=== PATIENT | female | born 1980 | race American Indian/Alaskan Native ===

== ENCOUNTER 2020-07-23 10:33 | Emergency (ER) | payer SELFPAY ==
--- NOTE | 2020-07-23 11:24 | RAD REPORT ---
EXAM DESCRIPTION: CT - Head Brain Wo Cont - 07/23/2020 11:19 am CLINICAL HISTORY: HEADACHE COMPARISON: No comparisons TECHNIQUE: Axial 5 mm thick images of the head were obtained without IV contrast. All CT scans are performed using dose optimization technique as appropriate and may include automated exposure control or mA/KV adjustment according to patient size. FINDINGS: No intracranial hemorrhage, mass, edema or shift of mid-line structures. No acute infarcti on changes seen. No abnormal extra-axial fluid collections. Ventricles are normal. Mastoid air cells and visualized portions of the paranasal sinuses are clear. No acute bony findings. IMPRESSION: Negative non-contrast CT head examination.
[2020-07-23] MEDS ORDERED: cloNIDine HCL 0.1 MG TAB ONE (11:32)
[2020-07-23 11:33] LABS: Absolute Lymphocytes (CBC) 1.3 K/uL (0.7-4.9); Basophils % 2.3 % (0-1.3); Hematocrit 37.5 % (36.0-45.0); Lymphocytes % 25.8 % (15.3-44.8); MPV 8.2 fL (7.6-11.3); RBC Red Blood Cell Count 4.17 M/uL (3.86-4.86)
[2020-07-23 11:41] LABS: Urine Bacteria <20 /HPF (<20); Urine Culture Reflex Order NOT NEEDED
[2020-07-23 11:43] LABS: Urine Blood 3+ (NEG); Urine Glucose NEGATIVE (NEG); Urine Protein 1+ (NEG)
[2020-07-23 11:45] LABS: BUN Blood Urea Nitrogen 22 mg/dL (7-18); Bicarbonate 30 mmol/L (21-32); Glucose Level 83 mg/dL (74-106); Potassium 3.9 mmol/L (3.5-5.1); Sodium Level 141 mmol/L (136-145); Troponin (Emerg Dept Use Only) < 0.02 ng/mL (0.0-0.045)
--- NOTE | 2020-07-23 12:06 | ER ---
Nurse's Notes [facility] Name: Santiago Thompson Age: 39 yrs Sex: Female : 1980 Arrival Date: 07/23/2020 Time: 10:39 Bed 19 Private MD: Diagnosis: Hypertension Presentation: 07/23 10:51 Chief complaint: Home BP 164/80. Denies pain/SOB. Coronavirus screen: At this time, the hb client does not indicate any symptoms associated with coronavirus-19. Ebola Screen: No symptoms or risks identified at this time. Initial Sepsis Screen: Does the patient meet any 2 criteria? No. Patient's initial sepsis screen is negative. Does the patient have a suspected source of infection? No. Patient's initial sepsis screen is negative. Risk Assessment: Do you want to hurt yourself or someone else? Patient reports no desire to harm self or others. Onset of symptoms was July 23, 2020. 10:51 Method Of Arrival: Wheelchair hb 10:51 Acuity: SILVIA 3 hb Triage Assessment: 12:37 General: Appears in no apparent distress. Behavior is calm, cooperative, appropriate ll2 for age. Pain: Denies pain. 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 - Social history:: Smoking status: Patient denies any tobacco usage or history of. - Family history:: not pertinent. - Hospitalizations: : No recent hospitalization is reported. Screenin:21 Abuse screen: Denies threats or abuse. Nutritional screening: No deficits noted. em Tuberculosis screening: No symptoms or risk factors identified. Fall Risk None identified. Vital Signs: 10:51 BP 173 / 108; Pulse 71; Resp 16; Temp 99; Pulse Ox 100% on R/A; Weight 68.04 kg; Height hb 4 ft. 11 in. (149.86 cm); Pain 0/10; 11:30 BP 164 / 100; Pulse 74; Resp 18; Pulse Ox 99% on R/A; em 12:39 BP 140 / 93; Pulse 54; Resp 15; Pulse Ox 100% on R/A; ll2 10:51 Body Mass Index 30.30 (68.04 kg, 149.86 cm) hb ED Course: 10:39 Patient arrived in ED. ds1 10:52 Triage completed. hb 10:52 Arm band placed on. hb 10:53 Jordan Alejo, RN is Primary Nurse. em 10:55 Sam Penn MD is Attending Physician. rn 11:18 CT Head Brain wo Cont In Process Unspecified. EDMS 11:21 Patient has correct armband on for positive identification. Placed in gown. Bed in low em position. Call light in reach. monitor and storage bin tender on. Pulse ox on. NIBP on. 11:21 Initial lab(s) drawn, by me, sent to lab. Inserted saline lock: 20 gauge in right em antecubital area, using aseptic technique. Blood collected. 12:38 No provider procedures requiring assistance completed. IV discontinued, intact, ll2 bleeding controlled, No redness/swelling at site. Pressure dressing applied. Administered Medications: 11:33 Drug: cloNIDine 0.1 mg Route: PO; em 12:40 Follow up: Response: No adverse reaction ll2 Outcome: 12:05 Discharge ordered by . rn 12:38 Discharged to home ambulatory. ll2 12:38 Condition: stable 12:38 Discharge instructions given to patient. 12:39 Patient left the ED. ll2 Signatures: Dispatcher [employer] Jordan Schofield, RN NNEKA Tracey Rodriguez ds1 Sam Penn MD MD rn Baxter, Heather, RN RN Mamie Lee RN RN ll2
--- NOTE | 2020-07-23 12:06 | EDPHYS ---
Physician Documentation [facility] Name: Santiago Zamorate Age: 39 yrs Sex: Female : 1980 Arrival Date: 07/23/2020 Time: 10:39 Bed 19 Private MD: ED Physician Sam Penn HPI: 07/23 11:39 This 39 yrs old Other Female presents to ER via Wheelchair with complaints of High rn Blood Pressure. 11:39 The patient has elevated blood pressure and discovered this at home. Onset: The rn symptoms/episode began/occurred 2 day(s) ago. Severity of symptoms: At its worst the blood pressure was moderate, in the emergency department the blood pressure is unchanged. The patient has not experienced similar symptoms in the past. Reports high blood pressure, noticed it 2 days ago at home, + mild headache, no focal neuro complaints, no vomiting/vision changes/abd pain. Seen by EMS, told to take advil, didn't improve BP, told to come to ER for evaluation. NO current headache. . 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 - Social history:: Smoking status: Patient denies any tobacco usage or history of. - Family history:: not pertinent. - Hospitalizations: : No recent hospitalization is reported. ROS: 11:39 Constitutional: Negative for fever, chills, and weight loss, Eyes: Negative for injury, rn pain, redness, and discharge, Cardiovascular: Negative for chest pain, palpitations, and edema, Respiratory: Negative for shortness of breath, cough, wheezing, and pleuritic chest pain, Abdomen/GI: Negative for abdominal pain, nausea, vomiting, diarrhea, and constipation, MS/Extremity: Negative for injury and deformity, Skin: Negative for injury, rash, and discoloration, Neuro: Negative for weakness, numbness, tingling, and seizure. Exam: 11:39 Constitutional: This is a well developed, well nourished patient who is awake, alert, rn and in no acute distress. Head/Face: Normocephalic, atraumatic. Eyes: Pupils equal round and reactive to light, extra-ocular motions intact. Lids and lashes normal. Conjunctiva and sclera are non-icteric and not injected. Cornea within normal limits. Periorbital areas with no swelling, redness, or edema. Cardiovascular: Regular rate and rhythm. No pulse deficits. Respiratory: Speaking full sentences. No increased work of breathing, no retractions or nasal flaring. Abdomen/GI: soft, non-tender Skin: Warm, dry with normal turgor. Normal color with no rashes, no lesions, and no evidence of cellulitis. MS/ Extremity: Pulses equal, no cyanosis. Neurovascular intact. Full, normal range of motion. Equal circumference. Neuro: Awake and alert, GCS 15, oriented to person, place, time, and situation. Cranial nerves II-XII grossly intact. Motor strength 5/5 in all extremities. Sensory grossly intact. Cerebellar exam normal Vital Signs: 10:51 BP 173 / 108; Pulse 71; Resp 16; Temp 99; Pulse Ox 100% on R/A; Weight 68.04 kg; Height hb 4 ft. 11 in. (149.86 cm); Pain 0/10; 11:30 BP 164 / 100; Pulse 74; Resp 18; Pulse Ox 99% on R/A; em 12:39 BP 140 / 93; Pulse 54; Resp 15; Pulse Ox 100% on R/A; ll2 10:51 Body Mass Index 30.30 (68.04 kg, 149.86 cm) hb MDM: 10:56 Patient medically screened. rn 12:03 Differential diagnosis: Malignant HTN. 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 Counseling: I had a detailed discussion with the patient and/or guardian regarding: the historical points, exam findings, and any diagnostic results supporting the discharge/admit diagnosis, lab results, radiology results, the need for outpatient follow up, to return to the emergency department if symptoms worsen or persist or if there are any questions or concerns that arise at home. Response to treatment: the patient's symptoms have markedly improved after treatment, and as a result, I will discharge patient. Special discussion: I discussed with the patient/guardian in detail that at this point there is no indication for admission to the hospital. It is understood, however, that if the symptoms persist or worsen the patient needs to return immediately for re-evaluation. ED course: BP improved, now 143/89, normal ct head, neg trop and normal creatinine. . 12:03 ED course: Will start on HCTZ given high blood pressure and family hx of early stroke, rn will f/u with PCP because will likely require second anti-hypertensive, this was discussed with patient and significant other. . 07/23 11:04 Order name: CBC with Diff; Complete Time: 11:39 rn 07/23 11:04 Order name: Basic Metabolic Panel; Complete Time: 12:02 rn 07/23 11:04 Order name: Troponin (emerg Dept Use Only); Complete Time: 12:02 rn 07/23 11:04 Order name: CT Head Brain wo Cont; Complete Time: 11:39 rn 07/23 11:04 Order name: Urine Microscopic Only; Complete Time: 12:02 rn 07/23 11:29 Order name: Urine Dipstick--Ancillary (enter results); Complete Time: 12:02 bd 07/23 11:04 Order name: IV Start; Complete Time: 11:21 rn 07/23 11:04 Order name: EKG; Complete Time: 11:05 rn 07/23 11:04 Order name: EKG - Nurse/Tech; Complete Time: 11:09 rn 07/23 11:04 Order name: Urine Test (obtain specimen); Complete Time: 11:35 rn 07/23 11:04 Order name: Urine Dipstick-Ancillary (obtain specimen); Complete Time: 11:35 rn Administered Medications: 11:33 Drug: cloNIDine 0.1 mg Route: PO; em 12:40 Follow up: Response: No adverse reaction ll2 Disposition: 07/23/20 12:05 Discharged to Home. Impression: Hypertension. - Condition is Stable. - Discharge Instructions: Hypertension. - Prescriptions for Hydrochlorothiazide 50 mg Oral Tablet - take 1 tablet by ORAL route once daily; 30 tablet. - Medication Reconciliation Form, Thank You Letter, Antibiotic Education, Prescription Opioid Use form. - Follow up: Private Physician; When: 10 - 14 days; Reason: Recheck today's complaints, Re-evaluation by your physician. - Problem is new. - Symptoms have improved. Signatures: Dispatcher [employer] Jordan Schofield, RN RN Sam Pal MD MD rn Baxter, Heather, RN RN Mamie Lee RN RN ll2 Corrections: (The following items were deleted from the chart) 12:39 12:05 07/23/2020 12:05 Discharged to Home. Impression: Hypertension. Condition is ll2 Stable. Forms are Medication Reconciliation Form, Thank You Letter, Antibiotic Education, Prescription Opioid Use. Follow up: Private Physician; When: 10 - 14 days; Reason: Recheck today's complaints, Re-evaluation by your physician. Problem is new. Symptoms have improved. rn
--- NOTE | 2020-07-23 12:15 | EKG ---
Test Date: 2020-07-23 Test Time: 11:05:56 Animal Control Licensing Worker: IRINA MEASUREMENT RESULTS: Intervals: Rate: 63 WA: 124 QRSD: 76 QT: 398 QTc: 407 [place]: P: 47 WA: 124 QRS: 51 T: 28 INTERPRETIVE STATEMENTS: Normal sinus rhythm Cannot rule out Anterior infarct, age undetermined Abnormal ECG No previous ECG available for comparison Electronically Signed On 07-23-20 12:14:54 CDT by Mina Mccarthy
[2020-07-23 12:47] VITALS: TEMP 99
[2020-07-23 12:58] VITALS: BP 164/100; O2SAT 99
== END 2020-07-23 12:39 | disposition home or self-care (01) ==
LOC: ER 10:33
DX: I10 Essential (primary) hypertension (principal)
CPT/HCPCS: 36415; 70450; 80048; 81003; 81015; 84484; 85025; 93005; 99284

== ENCOUNTER 2021-06-28 09:20 | Emergency (ER) | payer SELFPAY ==
--- NOTE | 2021-06-28 10:03 | EDPHYS ---
Physician Documentation [facility] Matthew Name: Santiago Thompson Age: 40 yrs Sex: Female : 1980 Arrival Date: 06/28/2021 Time: 09:24 Bed 19 Private MD: NAMAN Physician Kyle Lopez HPI: 06/28 09:58 This 40 yrs old Other Female presents to ER via Ambulatory with complaints of Mouth doris Problem. 09:58 The patient presents with broken tooth/teeth, pain. The problem is located in the lower doris left first molar. Onset: The symptoms/episode began/occurred 2 day(s) ago. Duration: The symptoms are continuous, and are unchanged since they started. Modifying factors: The symptoms are alleviated by nothing, the symptoms are aggravated by chewing, food, talking. Associated signs and symptoms: The patient has no apparent associated signs or symptoms. Severity of symptoms: At their worst the symptoms were mild, moderate, in the emergency department the symptoms are unchanged. The patient has not experienced similar symptoms in the past. 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 - Social history:: Smoking status: Patient denies any tobacco usage or history of. - Family history:: not pertinent. ROS: 09:58 Constitutional: Negative for fever, chills, and weight loss, Eyes: Negative for injury, doris pain, redness, and discharge, Neck: Negative for injury, pain, and swelling, Cardiovascular: Negative for chest pain, palpitations, and edema, Respiratory: Negative for shortness of breath, cough, wheezing, and pleuritic chest pain, Abdomen/GI: Negative for abdominal pain, nausea, vomiting, diarrhea, and constipation, Back: Negative for injury and pain, : Negative for injury, bleeding, discharge, and swelling, MS/Extremity: Negative for injury and deformity, Skin: Negative for injury, rash, and discoloration, Neuro: Negative for headache, weakness, numbness, tingling, and seizure, Psych: Negative for depression, anxiety, suicide ideation, homicidal ideation, and hallucinations, Allergy/Immunology: Negative for hives, rash, and allergies, Endocrine: Negative for neck swelling, polydipsia, polyuria, polyphagia, and marked weight changes, Hematologic/Lymphatic: Negative for swollen nodes, abnormal bleeding, and unusual bruising. 09:58 ENT: Positive for Gum pain Exam: 09:58 Constitutional: This is a well developed, well nourished patient who is awake, alert, doris and in no acute distress. Head/Face: Normocephalic, atraumatic. Eyes: Pupils equal round and reactive to light, extra-ocular motions intact. Lids and lashes normal. Conjunctiva and sclera are non-icteric and not injected. Cornea within normal limits. Periorbital areas with no swelling, redness, or edema. Neck: Trachea midline, no thyromegaly or masses palpated, and no cervical lymphadenopathy. Supple, full range of motion without nuchal rigidity, or vertebral point tenderness. No Meningismus. Chest/axilla: Normal chest wall appearance and motion. Nontender with no deformity. No lesions are appreciated. Cardiovascular: Regular rate and rhythm with a normal S1 and S2. No gallops, murmurs, or rubs. Normal PMI, no JVD. No pulse deficits. Respiratory: Lungs have equal breath sounds bilaterally, clear to auscultation and percussion. No rales, rhonchi or wheezes noted. No increased work of breathing, no retractions or nasal flaring. Abdomen/GI: Soft, non-tender, with normal bowel sounds. No distension or tympany. No guarding or rebound. No evidence of tenderness throughout. Back: No spinal tenderness. No costovertebral tenderness. Full range of motion. Skin: Warm, dry with normal turgor. Normal color with no rashes, no lesions, and no evidence of cellulitis. MS/ Extremity: Pulses equal, no cyanosis. Neurovascular intact. Full, normal range of motion. Neuro: Awake and alert, GCS 15, oriented to person, place, time, and situation. Cranial nerves II-XII grossly intact. Motor strength 5/5 in all extremities. Sensory grossly intact. Cerebellar exam normal. Normal gait. Psych: Awake, alert, with orientation to person, place and time. Behavior, mood, and affect are within normal limits. 09:58 ENT: Mouth: Lips: moist, Oral mucosa: moist, Gums: noted to have cellulitis, Tongue: is normal, abscess, is not appreciated, Dental exam: fractured teeth are noted, specifically the lower left second bicuspid (#20). Vital Signs: 09:32 Pulse 74; Resp 16; Temp 97.9; Pulse Ox 100% on R/A; iw 10:26 BP 151 / 86; Pulse 86; Resp 18; Pulse Ox 100% on R/A; tr6 MDM: 09:28 Patient medically screened. doris 10:00 Differential diagnosis: dental caries, gingivitis, dental abscess. Data reviewed: vital doris signs, nurses notes. Data interpreted: radiation monitor: rate is 74 beats/min, rhythm is regular, Pulse oximetry: on room air is 100 %. Counseling: I had a detailed discussion with the patient and/or guardian regarding: the historical points, exam findings, and any diagnostic results supporting the discharge/admit diagnosis, lab results, the need for outpatient follow up, for definitive care, a dentist. Administered Medications: 10:24 Drug: Augmentin (Amoxicillin-Clavulanate) 875 mg Route: PO; tr6 10:24 Drug: [place] (HYDROcodone-acetaminophen) 10 mg-325 mg 1 tabs Route: PO; tr6 10:24 Drug: Motrin (ibuprofen) 600 mg Route: PO; tr6 10:24 Drug: Zofran (Ondansetron) 4 mg Route: PO; tr6 Disposition Summary: 06/28/21 10:02 Discharge Ordered Location: Home doris Problem: new doris Symptoms: have improved doris Condition: Stable doris Diagnosis - Dental root caries doris - Dental caries, unspecified doris - Cracked tooth doris Followup: doris - With: Private Physician - When: 1 - 2 days - Reason: Recheck today's complaints, Continuance of care, Re-evaluation by your physician Discharge Instructions: - Discharge Summary Sheet doris - Dental Caries, Adult doris - Dental Pain doris - Tooth Injuries doris - Dental Pain, Hnap-[id number] doris - Diet and Dental Disease doris - Dental Caries, Adult, [id number] doris Forms: - Medication Reconciliation Form doris - Thank You Letter doris - Antibiotic Education doris - Prescription Opioid Use doris Prescriptions: - acetaminophen-codeine 300-15 mg Oral tablet - take 2 tablet by ORAL route every 4-6 hours; 20 tablet; Refills: 0, Product doris Selection Permitted - Augmentin 875-125 mg Oral Tablet - take 1 tablet by ORAL route every 12 hours for 7 days; 14 tablet; Refills: 0, [facility] Product Selection Permitted - Ibuprofen 600 mg Oral Tablet - take 1 tablet by ORAL route every 6 hours As needed take with food; 20 tablet; [facility] Refills: 0, Product Selection Permitted Signatures: Kyle Lopez MD MD cha Williams, Irene, RN RN Hailey Degroot RN RN tr6
--- NOTE | 2021-06-28 10:03 | ER ---
Nurse's Notes [facility] Matthew Name: Santiago Jay Age: 40 yrs Sex: Female : 1980 Arrival Date: 06/28/2021 Time: 09:24 Bed 19 Private MD: Diagnosis: Dental root caries;Dental caries, unspecified;Cracked tooth Presentation: 06/28 09:32 Chief complaint: Patient states: had a filling placed on , can't get in to see iw dentist til Wednesday, is having a lot of pain. Coronavirus screen: At this time, the client does not indicate any symptoms associated with coronavirus-19. Ebola Screen: Patient negative for fever greater than or equal to 101.5 degrees Fahrenheit, and additional compatible Ebola Virus Disease symptoms Patient denies exposure to infectious person. Patient denies travel to an Ebola-affected area in the 21 days before illness onset. No symptoms or risks identified at this time. Initial Sepsis Screen: Does the patient meet any 2 criteria? No. Patient's initial sepsis screen is negative. Does the patient have a suspected source of infection? No. Patient's initial sepsis screen is negative. Risk Assessment: Do you want to hurt yourself or someone else? Patient reports no desire to harm self or others. Onset of symptoms was June 28, 2021. 09:32 Method Of Arrival: Ambulatory iw 09:32 Acuity: SILVIA 4 Triage Assessment: 10:25 General: Appears in no apparent distress. Behavior is calm, cooperative, appropriate tr6 for age. Pain: Complains of pain in mouth. EENT: No deficits noted. Neuro: No deficits noted. Cardiovascular: No deficits noted. Respiratory: No deficits noted. GI: No deficits noted. : No deficits noted. Derm: No deficits noted. Musculoskeletal: No deficits noted. 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 - Social history:: Smoking status: Patient denies any tobacco usage or history of. - Family history:: not pertinent. Screenin:25 Abuse screen: Denies threats or abuse. Denies injuries from another. Nutritional tr6 screening: No deficits noted. Tuberculosis screening: No symptoms or risk factors identified. The patient passed the bedside swallow screening. Oral medications may be given as ordered. Contact Physician for further diet orders. Fall Risk None identified. Vital Signs: 09:32 Pulse 74; Resp 16; Temp 97.9; Pulse Ox 100% on R/A; iw 10:26 BP 151 / 86; Pulse 86; Resp 18; Pulse Ox 100% on R/A; tr6 ED Course: 09:24 Patient arrived in ED. mr 09:26 Kyle Lopez MD is Attending Physician. doris 09:27 Hailey Degroot, RN is Primary Nurse. tr6 09:33 Triage completed. iw 09:34 Arm band placed on. iw 10:25 No apparent distress. Resting quietly. tr6 10:25 Patient has correct armband on for positive identification. Bed in low position. Call tr6 light in reach. Side rails up X 1. Door closed. Noise minimized. Visitors limited. Lights dimmed. Moved to private room. 10:25 No provider procedures requiring assistance completed. Patient did not have IV access tr6 during this emergency room visit. Administered Medications: 10:24 Drug: Augmentin (Amoxicillin-Clavulanate) 875 mg Route: PO; tr6 10:24 Drug: [place] (HYDROcodone-acetaminophen) 10 mg-325 mg 1 tabs Route: PO; tr6 10:24 Drug: Motrin (ibuprofen) 600 mg Route: PO; tr6 10:24 Drug: Zofran (Ondansetron) 4 mg Route: PO; tr6 Outcome: 10:02 Discharge ordered by . [facility] 10:25 Discharged to home ambulatory. tr6 10:25 Condition: good 10:25 Discharge instructions given to patient, Instructed on discharge instructions, follow up and referral plans. medication usage, safety practices, Demonstrated understanding of instructions, follow-up care, medications, Prescriptions given X 3. 10:27 Patient left the ED. tr6 Signatures: Kyle Lopez MD MD cha Rivera, Mary mr Williams, Irene, RN NNEKA Hailey Degroot, NNEKA RN tr6
[2021-06-28 10:32] VITALS: TEMP 97.9; O2SAT 100
[2021-06-28 10:33] VITALS: BP 151/86
[2021-06-28] MEDS ORDERED: AMOX/K CLAV 875 MG TAB ONE (10:33)
[2021-06-28] MEDS ORDERED: HYDROCODONE/APAP 10/325 TAB ONE (10:33)
[2021-06-28] MEDS ORDERED: IBUPROFEN 400 MG TAB ONE (10:34)
[2021-06-28] MEDS ORDERED: IBUPROFEN 200 MG TAB PO ONE (10:34)
[2021-06-28] MEDS ORDERED: ONDANSETRON 4 MG (ODT) TAB ONE (10:34)
== END 2021-06-28 10:27 | disposition home or self-care (01) ==
LOC: ER 09:20
DX: K02.7 Dental root caries (principal); K02.9 Dental caries, unspecified
CPT/HCPCS: 99283